=== PATIENT | female | born 2000 | race Hispanic/Latino ===

== ENCOUNTER 2022-06-13 03:44 | Emergency (ER) | payer BC, SELFPAY ==
[2022-06-13] MEDS ORDERED: Ondansetron PF 4 MG/2 ML Vial ONE (04:17)
== END 2022-06-13 05:08 | disposition home or self-care (01) ==
LOC: CSHERS 03:44
DX: F10.129 Alcohol abuse with intoxication, unspecified (principal)
CPT/HCPCS: 96374; J2405